=== PATIENT | female | born 1980 | race Caucasian/White ===

== ENCOUNTER 2017-03-01 09:12 | Emergency (ER) | payer OTHER ==
[2017-03-01 10:13] VITALS: BP 116/88
--- NOTE | 2017-03-01 10:14 | ED Physician Documentation ---
History of Present Illness - Stated complaint Stated Complaint: RED EYES, SINUS PAIN, DIFFICULTY BREATHING - Chief complaint Chief Complaint: Heent - Additonal information Additional information: hx from pt 36 f denies preg approx 7 days of fever myalgias congestion sore throat cough and diarrhea rest of family with similarr using OTC poly cold med s relief now sinus pressure and pain and R sided facial swelling Review of Systems Constitutional: reports: Fever, Chills, Myalgias Ears: reports: Ear pain Nose: reports: Congestion Throat: reports: Sore throat Respiratory: reports: Cough GI: reports: Diarrhea. denies: Vomiting : reports: Control (tubal and had vas and she is on her period now). denies: Now EGA PD PAST MEDICAL HISTORY - Past Medical History Past Medical History: No Respiratory: None, Asthma Endocrine/Autoimmune: HyPOthyroidism - Past Surgical History General: Cholecystectomy - Present Medications Home Medications: Ambulatory Orders Medication Instructions Recorded Confirmed Albuterol Sulf [Ventolin Hfa 2 puffs PO 03/01/17 Inhaler] Azithromycin [Zithromax] 250 mg PO DAILY #6 tablet 03/01/17 Fluticasone [Flonase] 1 sprays SONAM BID PRN #1 bottle 03/01/17 Levothyroxine Sodium [Synthroid] 175 mcg PO DAILY 03/01/17 03/01/17 Naproxen 03/01/17 Omeprazole 10 mg PO DAILY 03/01/17 03/01/17 - Allergies Allergies/Adverse Reactions: Allergies Allergy/AdvReac Type Severity Reaction Status Date / Time Penicillins Allergy family hx Verified 03/01/17 09:26 - Social History Does the pt smoke?: No Smoking Status: Never smoker - Immunizations Immunizations: TDAP current <10years PD ED PE NORMAL - Vitals Vital signs reviewed: Yes - General General: Alert and oriented X 3 - HEENT HEENT: PERRL, EOMI, Ears normal, Moist mucous membranes, Other (all sinus TTP, R frontal and maxiallr swollen and slightly erythematous, nasal dc). No: Pharynx benign (erythema no exudate) - Neck Neck: Supple, no meningeal sign - Cardiac Cardiac: RRR - Respiratory Respiratory: No respiratory distress, Clear bilaterally - Derm Derm: No rash - Extremities Extremities: No deformity - Neuro Neuro: Alert and oriented X 3 Results - Vitals Vitals: Vital Signs - 24 hr 12/30/17 09:20 Temperature 36.9 C Heart Rate 95 Respiratory 18 Rate Blood Pressure 129/84 H O2 Saturation 97 Oxygen O2 Source Room air PD MEDICAL DECISION MAKING - ED course ED course: mios sinus infections are viral and txed symptomatically but pt has failed symptomatic meds and ow with visible redness and swelling on R - feel this merits ab rx Departure - Departure Disposition: 01 Home, Self Care Clinical Impression: Sinusitis Qualifiers: Sinusitis location: maxillary Chronicity: acute Recurrence: not specified as recurrent Qualified Code(s): J01.00 - Acute maxillary sinusitis, unspecified Condition: Good Instructions: ED Sinusitis Abx Tx Prescriptions: Azithromycin [Zithromax] 250 mg PO DAILY #6 tablet Fluticasone [Flonase] 1 sprays SONAM BID PRN #1 bottle PRN Reason: allergies Comments: A sinus irrigation kit such as a Carolyn Pot (can buy at the grocery stores or pharmacy) to flush out your sinus cavities will help a lot
== END 2017-03-01 10:22 | disposition home or self-care (01) ==
LOC: ED 09:12
DX: J01.00 Acute maxillary sinusitis, unspecified (principal); E03.9 Hypothyroidism, unspecified
CPT/HCPCS: 99283

== ENCOUNTER 2017-03-27 13:55 | Emergency (ER) | payer OTHER ==
[2017-03-27 14:10] VITALS: BP 114/83
--- NOTE | 2017-03-27 14:26 | ED Physician Documentation ---
PD HPI SKIN - Stated complaint Stated Complaint: LEFT FINGER PX - Chief complaint Chief Complaint: Wound - History obtained from History obtained from: Patient - History of Present Illness Timing - onset: How many days ago (few) Timing - duration: Days Timing - details: Gradual onset, Still present Location: LLE (left index finger corner) Quality / character: Painful, Discolored (red) Associated symptoms: No: Fever Similar symptoms before: Has not had sx before Recently seen: Not recently seen Review of Systems Constitutional: denies: Fever, Chills PD PAST MEDICAL HISTORY - Past Medical History Past Medical History: No Respiratory: None, Asthma Endocrine/Autoimmune: HyPOthyroidism - Past Surgical History Past Surgical History: Yes General: Cholecystectomy - Present Medications Home Medications: Ambulatory Orders Medication Instructions Recorded Confirmed Albuterol Sulf [Ventolin Hfa 2 puffs PO DAILY 03/01/17 03/27/17 Inhaler] Levothyroxine Sodium [Synthroid] 175 mcg PO DAILY 03/01/17 03/27/17 Naproxen 1 tab PO BID 03/01/17 03/27/17 Omeprazole 10 mg PO DAILY 03/01/17 03/27/17 Mupirocin 1 applic TP TID #15 oint...g. 03/27/17 Sulfamethox/Trimeth 800/160 1 each PO BID #14 tablet 03/27/17 [Bactrim Ds 800/160] - Allergies Allergies/Adverse Reactions: Allergies Allergy/AdvReac Type Severity Reaction Status Date / Time Penicillins Allergy family hx Verified 03/27/17 14:10 - Social History Does the pt smoke?: No Smoking Status: Never smoker Does the pt drink ETOH?: Yes ETOH Use: Wine, Beer, Liquor Does the pt have substance abuse?: No - Immunizations Immunizations are current?: Yes Immunizations: TDAP current <10years - POLST Patient has POLST: No PD ED PE NORMAL - Vitals Vital signs reviewed: Yes - General General: Alert and oriented X 3, Well developed/nourished - Derm Derm: Normal color, Warm and dry - Extremities Extremities: Other (left index finger corner with nail into corner some and local swelling/white color, but redness extending on distal phalanx. ) - Neuro Neuro: No motor deficit, No sensory deficit Results - Vitals Vitals: Oxygen O2 Source Room air Procedures - General procedure General procedure: trimmed corner of nail from edge/ingrown part and some pus came out of corner. PD MEDICAL DECISION MAKING - ED course Complexity details: considered differential (paronychia with small local infection but also redness of skin c/w some cellulitic extension.), d/w patient Departure - Departure Disposition: 01 Home, Self Care Clinical Impression: Paronychia of finger Qualifiers: Laterality: left Qualified Code(s): L03.012 - Cellulitis of left finger Cellulitis of finger Qualifiers: Laterality: left Qualified Code(s): L03.012 - Cellulitis of left finger Condition: Stable Record reviewed to determine appropriate education?: Yes Instructions: ED Fingernail Infec Prescriptions: Mupirocin 1 applic TP TID #15 oint...g. Sulfamethox/Trimeth 800/160 [Bactrim Ds 800/160] 1 each PO BID #14 tablet Comments: Soak the finger 2-3 times a day in warm water. Apply mupirocin antibiotic ointment afterward. Bactrim oral antibiotic twice daily for the infection in the skin. Tylenol or ibuprofen if needed for pains. Recheck if not all better over the next several days. Discharge Date/Time: 03/27/17 14:57
[2017-03-27] MEDS ORDERED: SULFAMETH/TRIMETH DS 800/160 MG TABLET PO STA (14:48)
== END 2017-03-27 14:57 | disposition home or self-care (01) ==
LOC: ED 13:55
DX: L03.012 Cellulitis of left finger (principal); J45.909 Unspecified asthma, uncomplicated; E03.9 Hypothyroidism, unspecified
CPT/HCPCS: 99283; A9270

== ENCOUNTER 2018-05-20 10:28 | Emergency (ER) | payer OTHER ==
--- NOTE | 2018-05-20 11:24 | XRAY Report ---
Reason: dog bite Procedure Date: 05/20/2018 Accession Number: [id number] / [id number] Procedure: XR - Finger(s) LT CPT Code: FULL RESULT: EXAM: LEFT THUMB RADIOGRAPHY 3 VIEWS EXAM DATE: 05/20/2018. CLINICAL HISTORY: Dog bite. COMPARISON: None. TECHNIQUE: Frontal, oblique and lateral views. FINDINGS: Bones: Normal. No fracture or bone lesion. Joints: Normal. No subluxations. Soft Tissues: No radiopaque foreign body or soft tissue gas. IMPRESSION: Normal examination of the left thumb. RADIA
--- NOTE | 2018-05-20 11:28 | XRAY Report ---
Reason: dog bite Procedure Date: 05/20/2018 Accession Number: [id number] / [id number] Procedure: XR - Hand 3 View RT CPT Code: FULL RESULT: EXAM: RIGHT HAND RADIOGRAPHY 3 VIEWS EXAM DATE: 05/20/2018. CLINICAL HISTORY: Dog bite. COMPARISON: None. TECHNIQUE: PA, oblique and lateral views. FINDINGS: Bones: No acute fracture. Healed fracture of the distal phalanx of the fifth finger. Healed fracture of the distal radius, fixed with a ventral plate attached with multiple screws. Old nonunited fracture of the ulnar styloid. Joints: No dislocation. Soft Tissues: Mild dorsal swelling of the hand, and swelling of the second, third and fourth proximal phalanges. Radiodensities on the skin surface of multiple digits consistent with dirt or other radiodense material. IMPRESSION: No acute fracture or dislocation of the hand. Healed fracture of the distal phalanx of the fifth finger. Soft tissue swelling of the dorsum and of the fingers. Radiodensities on the skin surface of multiple fingers, probably dirt or other radiodense material. Old fractures of the distal radius and ulnar styloid. RADIA
[2018-05-20] MEDS ORDERED: AMOX/CLAV 875 MG/125 MG TABLET PO STA (12:28)
[2018-05-20] MEDS ORDERED: BACITRACIN OINT TOP STA (12:29)
[2018-05-20] MEDS ORDERED: TETANUS/DIPHTHERIA/PERTUSSIS 0.5 ML SYRINGE IM ONE (12:29)
--- NOTE | 2018-05-20 13:03 | ED Physician Documentation ---
PD HPI LOWER EXT INJURY - Stated complaint Stated Complaint: DOG BITE - Chief complaint Chief Complaint: Trauma Ext - History obtained from History obtained from: Patient - Additional information Additional information: 37-year-old female presents emergency department for evaluation after a dog bite which occurred today. The patient was bit on her right hand and has puncture wounds and her left thumb was also injured. No other area of injury. Symptoms are described as moderate. The dog is a friend's dog which is show no evidence of rapid behavior nor and the patient is unsure of the Dogs vaccination records. No other associated symptoms Review of Systems Constitutional: denies: Fever Eyes: denies: Discharge Ears: denies: Ear pain Nose: denies: Congestion Cardiac: denies: Chest pain / pressure Respiratory: denies: Cough GI: denies: Abdominal Pain Skin: reports: Laceration (s) Musculoskeletal: reports: Extremity pain Neurologic: denies: Generalized weakness PD PAST MEDICAL HISTORY - Past Medical History Past Medical History: Yes Respiratory: None, Asthma Endocrine/Autoimmune: HyPOthyroidism - Past Surgical History Past Surgical History: Yes General: Cholecystectomy - Present Medications Home Medications: Ambulatory Orders Medication Instructions Recorded Confirmed Albuterol Sulf [Ventolin Hfa 2 puffs PO DAILY 03/01/17 05/20/18 Inhaler] Levothyroxine Sodium [Synthroid] 175 mcg PO DAILY 03/01/17 05/20/18 Naproxen 1 tab PO BID 03/01/17 05/20/18 Omeprazole 10 mg PO DAILY 03/01/17 05/20/18 Amox/Clav 875/125 [Augmentin] 1 each PO Q12H #20 tablet 05/20/18 - Allergies Allergies/Adverse Reactions: Allergies Allergy/AdvReac Type Severity Reaction Status Date / Time Penicillins Allergy family hx Verified 05/20/18 10:49 - Social History Does the pt smoke?: No Smoking Status: Never smoker Does the pt drink ETOH?: Yes Does the pt have substance abuse?: No - Immunizations Immunizations are current?: Yes Immunizations: TDAP current <10years - POLST Patient has POLST: No PD ED PE NORMAL - General General: Alert and oriented X 3, No acute distress - HEENT HEENT: Atraumatic, PERRL, EOMI, Ears normal - Derm Derm: Other (Puncture wounds from the dog bite) - Extremities Extremities: No deformity - Neuro Neuro: Alert and oriented X 3, Normal speech - Psych Psych: Normal affect PD ED PE EXPANDED - Extremities KHOI UE/Hands Visual: 1 - laceration (Puncture wounds to the dorsum of the hand. There is some slight oozing. The patient has full active range of motion of the hand in extension and flexion. There is no bony area of tenderness. Normal cap refill and a normal radial pulse. There is no evidence of a tendon injury), tenderness 2 - tenderness (The patient has tenderness of the left thumb, there is no lacerations on the left hand) Results - Vitals Vitals: Vital Signs - 24 hr 05/20/18 10:45 Temperature 36.7 C Heart Rate 106 H Respiratory 16 Rate Blood Pressure 125/84 H O2 Saturation 98 Oxygen O2 Source Room air - Rads (name of study) XR Radiology: Final report received, See rad report (IMPRESSION: No acute fracture or dislocation of the hand. Healed fracture of the distal phalanx of the fifth finger. Soft tissue swelling of the dorsum and of the fingers. Radiodensities on the skin surface of multiple fingers, probably dirt or other radiodense material. Old fractures of the distal radius and ulnar styloid IMPRESSION: Normal examination of the left thumb. ) PD MEDICAL DECISION MAKING - ED course ED course: The patient will forego the rabies at this point, the dog will be observed and she will determine the vaccination status of the animal. I advised To get the immunoglobulin and first rabies vaccination. I advised returning to any point for reevaluation. I discussed warning signs for infection and various other issues and advised returning for any changes. The patient will otherwise fo llow-up with primary care Departure - Departure Disposition: 01 Home, Self Care Clinical Impression: Dog bite of hand Qualifiers: Encounter type: initial encounter Laterality: unspecified laterality Qualified Code(s): S61.459A - Open bite of unspecified hand, initial encounter; W54.0XXA - Bitten by dog, initial encounter Condition: Good Instructions: ED Bite Dog Prescriptions: Amox/Clav 875/125 [Augmentin] 1 each PO Q12H #20 tablet Comments: Please ask your friend to find out if the dog was vaccinated with rabies. If the dog shows any signs of rapid behavior or you change your mind please return back to the emergency department any point for the rabies immunoglobulin and vaccine Please return back to the emergency department any point for reevaluation for worsening symptoms or any concerns Please otherwise follow-up with primary care for ongoing wound management
[2018-05-20 13:11] VITALS: BP 118/75
== END 2018-05-20 13:10 | disposition home or self-care (01) ==
LOC: ED 10:28
DX: S61.431A Puncture wound without foreign body of right hand, initial encounter (principal); W54.0XXA Bitten by dog, initial encounter; M79.645 Pain in left finger(s)
CPT/HCPCS: 73130; 73140; 90471; 90715; 99283; A9270

== ENCOUNTER 2019-03-31 17:22 | Emergency (ER) | payer OTHER ==
[2019-03-31 17:39] VITALS: BP 132/102
[2019-03-31] MEDS ORDERED: CETIRIZINE 10 MG TABLET PO STA (18:16)
[2019-03-31] MEDS ORDERED: PSEUDOEPHEDRINE 30 MG TABLET PO STA (18:16)
--- NOTE | 2019-03-31 18:22 | ED Physician Documentation ---
PD HPI URI - Stated complaint Stated Complaint: FEVER/CONGESTION - Chief complaint Chief Complaint: Fever - History obtained from History obtained from: Patient - History of Present Illness Timing - onset: How many days ago (4) Timing duration: Days (4) Timing details: Gradual onset Pain level max: 0 Pain level now: 0 Associated symptoms: Fever (99), Nasal congestion, Rhinorrhea, Dry cough. 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 denies: Chills Nose: reports: Rhinorrhea / runny nose, Congestion Throat: denies: Sore throat Respiratory: reports: Cough GI: denies: Abdominal Pain, Nausea, Vomiting, Diarrhea : denies: Dysuria, Now EGA Skin: denies: Rash Musculoskeletal: denies: Neck pain, Back pain Neurologic: denies: Focal weakness, Numbness, Headache PD PAST MEDICAL HISTORY - Past Medical History Past Medical History: Yes Respiratory: None, Asthma Endocrine/Autoimmune: HyPOthyroidism - Past Surgical History Past Surgical History: Yes General: Cholecystectomy - Present Medications Home Medications: Ambulatory Orders Medication Instructions Recorded Confirmed Albuterol Sulf [Ventolin Hfa 2 puffs PO DAILY 03/01/17 05/20/18 Inhaler] Levothyroxine Sodium [Synthroid] 175 mcg PO DAILY 03/01/17 05/20/18 Naproxen 1 tab PO BID 03/01/17 05/20/18 Omeprazole 10 mg PO DAILY 03/01/17 05/20/18 Amox/Clav 875/125 [Augmentin] 1 each PO Q12H #20 tablet 05/20/18 Loratadine/Pseudoephedrine 1 tab PO DAILY PRN #14 tab.er.24h 03/31/19 [Allerclear D-24Hr ER Tablet] - Allergies Allergies/Adverse Reactions: Allergies Allergy/AdvReac Type Severity Reaction Status Date / Time Penicillins Allergy family hx Verified 03/31/19 17:36 - Social History Does the pt smoke?: No Smoking Status: Never smoker Does the pt drink ETOH?: Yes Does the pt have substance abuse?: No - Immunizations Immunizations are current?: Yes Immunizations: TDAP current <10years - POLST Patient has POLST: No PD ED PE NORMAL - Vitals Vital signs reviewed: Yes - General General: Alert and oriented X 3, No acute distress - HEENT HEENT: Ears normal, Moist mucous membranes, Pharynx benign - Neck Neck: Supple, no meningeal sign, No adenopathy - Cardiac Cardiac: RRR - Respiratory Respiratory: No respiratory distress, Clear bilaterally - Abdomen Abdomen: Soft, Non tender, Non distended - Derm Derm: Warm and dry - Extremities Extremities: No edema - Neuro Neuro: Alert and oriented X 3 - Psych Psych: Normal mood, Normal affect Results - Vitals Vitals: Vital Signs - 24 hr 03/31/19 17:36 Temperature 37.2 C Heart Rate 105 H Respiratory 16 Rate Blood Pressure 132/102 H O2 Saturation 99 Oxygen O2 Source Room air - Labs Labs: Laboratory Tests 03/31/19 18:00 Influenza A (Rapid) Negative Influenza B (Rapid) Negative PD MEDICAL DECISION MAKING - ED course Complexity details: reviewed results, considered differential, d/w patient ED course: Patient with what appears to be a viral syndrome. She is well-appearing, nontoxic. Negative influenza screen. No evidence of pneumonia. No evidence of strep pharyngitis. We will continue supportive care and have her follow-up with her doctor. Patient counseled regarding signs and symptoms for which I believe and urgent re-evaluation would be necessary. Patient with good understanding of and agreement to plan and is comfortable going home at this time This document was made in part using voice recognition software. While efforts are made to proofread this document, sound alike and grammatical errors may occur. Departure - Departure Disposition: 01 Home, Self Care Clinical Impression: Viral syndrome Condition: Good Instructions: ED Viral Syndrome Follow-Up: your,doctor in 1 week [Other] Prescriptions: Loratadine/Pseudoephedrine [Allerclear D-24Hr ER Tablet] 1 tab PO DAILY PRN #14 tab.er.24h PRN Reason: nasal congestion Comments: Return if you worsen. Drink plenty of fluids and rest. Discharge Date/Time: 03/31/19 18:31
== END 2019-03-31 18:31 | disposition home or self-care (01) ==
LOC: ED 17:22
DX: B34.9 Viral infection, unspecified (principal); J45.909 Unspecified asthma, uncomplicated
CPT/HCPCS: 87275; 87276; 99283; 99284; A9270

== ENCOUNTER 2019-07-24 16:17 | Emergency (ER) | payer OTHER ==
[2019-07-24 16:29] VITALS: BP 129/85
[2019-07-24] MEDS ORDERED: MUPIROCIN 2% OINT 1 GM TOP STA (16:30)
--- NOTE | 2019-07-24 16:31 | ED Physician Documentation ---
PD HPI LOWER EXT INJURY - Stated complaint Stated Complaint: LT FOOT INJ - Chief complaint Chief Complaint: Ext Problem - History obtained from History obtained from: Patient (She thinks about 4 days ago maybe she dropped something on her foot. She has a sore on the top of the left foot that is tender and hurts minimally at rest and a little more with walking. No fevers or chills.) Review of Systems Constitutional: reports: Reviewed and negative Cardiac: reports: Reviewed and negative Respiratory: reports: Reviewed and negative PD PAST MEDICAL HISTORY - Past Medical History Respiratory: None, Asthma Endocrine/Autoimmune: HyPOthyroidism - Past Surgical History Past Surgical History: Yes General: Cholecystectomy - Present Medications Home Medications: Ambulatory Orders Medication Instructions Recorded Confirmed Albuterol Sulf [Ventolin Hfa 2 puffs PO DAILY 03/01/17 05/20/18 Inhaler] Levothyroxine Sodium [Synthroid] 175 mcg PO DAILY 03/01/17 05/20/18 Naproxen 1 tab PO BID 03/01/17 05/20/18 Omeprazole 10 mg PO DAILY 03/01/17 05/20/18 Amox/Clav 875/125 [Augmentin] 1 each PO Q12H #20 tablet 05/20/18 Loratadine/Pseudoephedrine 1 tab PO DAILY PRN #14 tab.er.24h 03/31/19 [Allerclear D-24Hr ER Tablet] Mupirocin 1 gm TP TID #2 [email or web address] 07/24/19 - Allergies Allergies/Adverse Reactions: Allergies Allergy/AdvReac Type Severity Reaction Status Date / Time Penicillins Allergy family hx Verified 07/24/19 16:30 - Social History Does the pt smoke?: No Smoking Status: Never smoker Does the pt drink ETOH?: Yes Does the pt have substance abuse?: No - Immunizations Immunizations are current?: Yes Immunizations: TDAP current <10years - POLST Patient has POLST: No PD ED PE NORMAL - Vitals Vital signs reviewed: Yes - General General: Alert and oriented X 3, No acute distress - Extremities Extremities: Other (There is an abrasion on the top of the midfoot on the left with some underlying tenderness. No obvious infection but she worries about that.) - Neuro Neuro: Alert and oriented X 3, Normal speech Results - Vitals Vitals: Vital Signs - 24 hr 07/24/19 16:27 Temperature 36.7 C Heart Rate 78 Respiratory 16 Rate Blood Pressure 129/85 H O2 Saturation 100 Oxygen O2 Source Room air - Rads (name of study) 3 views of the left foot Radiology: EMP read contemporaneously (Contusion without fracture) PD MEDICAL DECISION MAKING - ED course ED course: 38-year-old woman with a several day old contusion of the foot, there is an abrasion there as well that may be very mildly effective which is treated with mupirocin. Certainly not significant enough to merit oral antibiotics. Departure - Departure Disposition: 01 Home, Self Care Clinical Impression: Abrasion, left foot, initial encounter Contusion of left foot Qualifiers: Encounter type: initial encounter Qualified Code(s): S90.32XA - Contusion of left foot, initial encounter Condition: Good Record reviewed to determine appropriate education?: Yes Instructions: ED Contusion Foot Prescriptions: Mupirocin 1 gm TP TID #2 [email or web address] Comments: Ibuprofen as needed for pain, if there is increased redness please return for reevaluation.
--- NOTE | 2019-07-24 16:54 | XRAY Report ---
Reason: foot inj Procedure Date: 07/24/2019 Accession Number: [id number] / [id number] Procedure: XR - Foot 3 View LT CPT Code: Final Report FULL RESULT: EXAM: LEFT FOOT RADIOGRAPHY EXAM DATE: 07/24/2019 04:45 PM. CLINICAL HISTORY: Left foot injury COMPARISON: None. TECHNIQUE: 3 views. FINDINGS: Bones: No fracture. Minimal Achilles enthesopathy. Joints: Nonweightbearing exam. No tibiotalar fusion. Soft Tissues: Mild soft tissue thickening and increased attenuation at the dorsum of the foot. No radiopaque retained foreign body. IMPRESSION: Mild soft tissue thickening and increased attenuation of the dorsum of the left foot. Correlate for hematoma. No fracture. RADIA
== END 2019-07-24 17:12 | disposition home or self-care (01) ==
LOC: ED 16:17
DX: S90.812A Abrasion, left foot, initial encounter (principal); S90.32XA Contusion of left foot, initial encounter; W20.8XXA Other cause of strike by thrown, projected or falling object, initial encounter
CPT/HCPCS: 73630; 99283; A9270

== ENCOUNTER 2021-09-07 14:07 | Emergency (ER) | payer OTHER ==
[2021-09-07] MEDS ORDERED: IPRATROPIUM/ALBUTEROL 3 ML NEB INH STA (16:28)
--- NOTE | 2021-09-07 16:29 | ED Physician Documentation ---
PD HPI DYSPNEA - Stated complaint Stated Complaint: SOA - Chief complaint Chief Complaint: Resp - History obtained from History obtained from: Patient - Additional information Additional information: Generally healthy 41-year-old woman with history of asthma. Never hospitalized for same. It is mild intermittent and uses an albuterol inhaler as needed but not daily. Its been particularly bad for the last 2 weeks though. She did have a fever on the day of onset but not since. Now she is just wheezing with dry cough and shortness of breath. Review of Systems Constitutional: denies: Fever, Chills Nose: denies: Rhinorrhea / runny nose Cardiac: denies: Chest pain / pressure Respiratory: reports: Dyspnea, Cough PD PAST MEDICAL HISTORY - Past Medical History Respiratory: None, Asthma Endocrine/Autoimmune: HyPOthyroidism - Past Surgical History Past Surgical History: Yes General: Cholecystectomy - Present Medications Home Medications: Ambulatory Orders Medication Instructions Recorded Confirmed Albuterol Sulf [Ventolin Hfa 2 puffs PO DAILY 03/01/17 05/20/18 Inhaler] Levothyroxine Sodium [Synthroid] 175 mcg PO DAILY 03/01/17 05/20/18 Naproxen 1 tab PO BID 03/01/17 05/20/18 Omeprazole 10 mg PO DAILY 03/01/17 05/20/18 Amox/Clav 875/125 [Augmentin] 1 each PO Q12H #20 tablet 05/20/18 Loratadine/Pseudoephedrine 1 tab PO DAILY PRN #14 tab.er.24h 03/31/19 [Allerclear D-24Hr ER Tablet] Mupirocin 1 gm TP TID #2 oin.pf.holley 07/24/19 Montelukast [Singulair] 10 mg PO QPM #30 tablet 09/07/21 predniSONE [Deltasone] 20 mg PO [id number] #21 tab 09/07/21 - Allergies Allergies/Adverse Reactions: Allergies Allergy/AdvReac Type Severity Reaction Status Date / Time Penicillins Allergy family hx Verified 07/24/19 16:30 shellfish derived Allergy Anaphylaxis Verified 09/07/21 14:11 - Social History Does the pt smoke?: No Smoking Status: Never smoker Does the pt drink ETOH?: Yes Does the pt have substance abuse?: No - Immunizations Immunizations are current?: Yes Immunizations: TDAP current <10years - POLST Patient has POLST: No PD ED PE NORMAL - Vitals Vital signs reviewed: Yes - General General: Alert and oriented X 3, Other (Frequent dry cough, audible wheezing at the bedside) - HEENT HEENT: PERRL, EOMI - Neck Neck: Supple, no meningeal sign, No bony TTP - Cardiac Cardiac: RRR, No murmur - Respiratory Respiratory: No respiratory distress, Other (Inspiratory and expiratory wheezing and mildly diminished but generally good air motion.) - Abdomen Abdomen: Normal bowel sounds, Soft, Non tender - Back Back: No CVA TTP, No spinal TTP - Derm Derm: Normal color, Warm and dry - Extremities Extremities: No edema, No calf tenderness / cord - Neuro Neuro: Alert and oriented X 3, Normal speech Results - Vitals Vitals: Vital Signs - 24 hr 09/07/21 09/07/21 09/07/21 14:11 16:42 16:44 Temperature 36.5 C Heart Rate 110 H 96 97 Respiratory 18 17 15 Rate Blood Pressure 136/64 H 110/79 O2 Saturation 99 100 Oxygen O2 Source Room air PD MEDICAL DECISION MAKING - ED course ED course: 41-year-old woman presents with active asthma exacerbation with normal vital signs. Not an extremis but definitely wheezing. After the administration of a DuoNeb and oral prednisone here she was feeling much better and her lungs were clear. She did not need a refill on her albuterol. Departure - Departure Disposition: 01 Home, Self Care Clinical Impression: Asthma Qualifiers: Asthma severity: mild Asthma persistence: intermittent Asthma complication type: with acute exacerbation Qualified Code(s): J45.21 - Mild intermittent asthma with (acute) exacerbation Condition: Good Record reviewed to determine appropriate education?: Yes Instructions: Asthma Dc Prescriptions: predniSONE [Deltasone] 20 mg PO [id number] #21 tab Montelukast [Singulair] 10 mg PO QPM #30 tablet Comments: Call your doctor to arrange a follow-up appointment, make the next available appointment. In the interim, return anytime if worse or if new symptoms develop.
[2021-09-07] MEDS ORDERED: predniSONE 20 MG TABLET PO STA (16:46)
[2021-09-07 17:14] VITALS: BP 112/72
== END 2021-09-07 17:14 | disposition home or self-care (01) ==
LOC: ED 14:07
DX: J45.21 Mild intermittent asthma with (acute) exacerbation (principal)
CPT/HCPCS: 94640; 94664; 99283; 99284; J7512

== ENCOUNTER 2022-05-04 10:20 | Emergency (ER) | payer OTHER ==
--- NOTE | 2022-05-04 14:14 | ED Physician Documentation ---
History of Present Illness - Stated complaint Stated Complaint: ABSCESS - Chief complaint Chief Complaint: Wound - Additonal information Additional information: History provided by patient. Reliable historian. 41-year-old presents to the emergency department with several days left lower genital area swelling that she believes to be a Bartholin abscess. States this has been a recurrent problem since high school. However she has never had it formally evaluated managed or drained. No fevers. Sexually active monogamous with 1 partner. No concerns for STI. Review of Systems Constitutional: reports: Reviewed and negative : reports: Other (Bartholin abscess) Skin: reports: Lesions PD PAST MEDICAL HISTORY - Past Medical History Respiratory: None, Asthma Endocrine/Autoimmune: HyPOthyroidism - Past Surgical History Past Surgical History: Yes General: Cholecystectomy - Present Medications Home Medications: Ambulatory Orders Medication Instructions Recorded Confirmed Albuterol Sulf [Ventolin Hfa 2 puffs PO DAILY 03/01/17 05/04/22 Inhaler] Levothyroxine Sodium [Synthroid] 175 mcg PO DAILY 03/01/17 05/04/22 Montelukast [Singulair] 10 mg PO QPM #30 tablet 09/07/21 05/04/22 Fluticasone Propion/Salmeterol 1 each IH DAILY 05/04/22 05/04/22 [Wixela 250-50 Inhub] Phentermine/Topiramate [Qsymia 1 each PO DAILY 05/04/22 05/04/22 11.25 mg-69 mg Capsule] Sulfamethox/Trimeth 800/160 1 each PO BID #14 tablet 05/04/22 [Bactrim Ds 800/160] - Allergies Allergies/Adverse Reactions: Allergies Allergy/AdvReac Type Severity Reaction Status Date / Time Penicillins Allergy family hx Verified 05/04/22 10:46 shellfish derived Allergy Anaphylaxis Verified 05/04/22 10:46 - Social History Does the pt smoke?: No Smoking Status: Never smoker Does the pt drink ETOH?: Yes Does the pt have substance abuse?: No - Immunizations Immunizations are current?: Yes Immunizations: TDAP current <10years - POLST Patient has POLST: No PD ED PE EXPANDED - General General: Alert, No acute distress - Female Female : Hydrologist present, Other (Left lower perigenital region with a 3 x 2 cm fluctuant abscess. Well below the level of the labia where you would expect Bartholin gland.) Results - Vitals Vitals: Vital Signs - 24 hr 05/04/22 10:42 Temperature 36.8 C Heart Rate 102 H Respiratory 18 Rate Blood Pressure 127/84 H O2 Saturation 100 Oxygen O2 Source Room air Procedures - Abscess I&D (location) left lower ravi-genital Preparation: Betadine, Lidocaine 1% Incision: Incised with scalpel, Purulent drainage, Loculations broken, Irrigated, Packed Other: Pt tolerated well, Dressing applied, Antibiotic prescribed PD Medical Decision Making - ED course Complexity details: d/w patient ED course: 41-year-old female presents emergency department for evaluation of a left lower perigenital abscess that is become a recurrent problem since high school. Though she has never had a fully drained or medically evaluated. On exam this is well below the region where 1 would expect a Bartholin cyst despite this however it should be drained and was at the bedside multiple loculations as well as purulent drainage seen. It was well irrigated and packed with small amount of gauze. Patient will be placed on Bactrim. Advised close follow-up with PCP. Given the recurrence in this region may benefit from gynecology referral though I am not certain this is a Bartholin abscess that recurs. Departure - Departure Disposition: 01 Home, Self Care Clinical Impression: Abscess of female genitalia Condition: Stable Record reviewed to determine appropriate education?: Yes Prescriptions: Sulfamethox/Trimeth 800/160 [Bactrim Ds 800/160] 1 each PO BID #14 tablet Comments: Haydee you do have an abscess in your left lower genital region. This is below the level where we would typically see a Bartholin gland abscess. However because it seems to recur still be. In any event we did drain this abscess today. It measured approximately 3 x 2 cm. It was irrigated and a small amount of shoestring gauze was placed in this wound. I would like you to remove this gauze in 36 to 48 hours time. It is okay to shower normally. I also recommend a warm sitz bath once a day. A prescription for Bactrim, an antibiotic, has been sent to the [facility] in [place]. Once the packing is out of the wound I recommend that you rinse this area with warm soapy water when you are in the shower each day. Over time and particular the next few weeks this should heal well. If at any point you have concerns of worsening infection, have increased pain, redness, swelling do not hesitate to return to the ER. I do recommend close follow-up with your primary care provider. You may benefit from referral to a field rep for evaluation of this recurrent abscess that may benefit from surgical evaluation and marsupialization.
[2022-05-04 14:29] VITALS: BP 106/77
== END 2022-05-04 14:34 | disposition home or self-care (01) ==
LOC: ED 10:20
DX: N76.4 Abscess of vulva (principal)
CPT/HCPCS: 56405

== ENCOUNTER 2022-08-29 13:06 | Emergency (ER) | payer OTHER ==
--- NOTE | 2022-08-29 13:25 | ED Physician Documentation ---
PD HPI CHEST PAIN - Stated complaint Stated Complaint: HIGH HR - Chief complaint Chief Complaint: Cardiac - History obtained from History obtained from: Patient - History of Present Illness Timing - onset: How many hours ago (4), Today Timing - onset during: Light activity (she was at [employer] and felt onset of fast heart rate, lightheaded, general weakness and some dyspnea.) Timing - details: Abrupt onset, Still present (had slowly improved but prior episodes tend to improve more readily than today.) Quality: Dull. No: Pressure, Tightness Location: Substernal, Left chest Associated symptoms: Feeling faint / dizzy, Palpitations. No: Shortness of air, Nausea Similar symptoms before: No diagnosis (has been evaluated by Neurologist for possible POTS. Has had Holter monitor couple of times. Also recently seen Endocrinology for low cortisol and felt to be hypoadrenal. Had no notable findings on brain MRI, per patient. Started on Hydrocortisone 20 mg AM, 5 mg PM just this past week.) Review of Systems Constitutional: denies: Fever, Chills Cardiac: denies: Chest pain / pressure, Palpitations, Pedal edema Respiratory: denies: Dyspnea, Cough GI: denies: Abdominal Pain, Vomiting, Diarrhea, Bloody / black stool Neurologic: denies: Generalized weakness, Headache PD PAST MEDICAL HISTORY - Past Medical History Respiratory: None, Asthma Endocrine/Autoimmune: HyPOthyroidism - Past Surgical History Past Surgical History: Yes General: Cholecystectomy - Present Medications Home Medications: Ambulatory Orders Medication Instructions Recorded Confirmed Albuterol Sulf [Ventolin Hfa 2 puffs PO DAILY 03/01/17 08/29/22 Inhaler] Levothyroxine Sodium [Synthroid] 175 mcg PO DAILY 03/01/17 08/29/22 Montelukast [Singulair] 10 mg PO QPM #30 tablet 09/07/21 08/29/22 Fluticasone Propion/Salmeterol 1 each IH DAILY 05/04/22 08/29/22 [Wixela 250-50 Inhub] Phentermine/Topiramate [Qsymia 1 each PO DAILY 05/04/22 08/29/22 11.25 mg-69 mg Capsule] - Allergies Allergies/Adverse Reactions: Allergies Allergy/AdvReac Type Severity Reaction Status Date / Time Penicillins Allergy family hx Verified 08/29/22 13:22 shellfish derived Allergy Anaphylaxis Verified 08/29/22 13:22 - Social History Does the pt smoke?: No Smoking Status: Never smoker Does the pt drink ETOH?: Yes Does the pt have substance abuse?: No - Immunizations Immunizations are current?: Yes Immunizations: TDAP current <10years - POLST Patient has POLST: No PD ED PE NORMAL - Vitals Vital signs reviewed: Yes - General General: Alert and oriented X 3, No acute distress, Well developed/nourished - Neck Neck: Supple, no meningeal sign, No adenopathy - Cardiac Cardiac: No murmur. No: RRR (tachycardic on arrival with sinus tach 130s, that slows to 110s after resting on cart few minutes. ) - Abdomen Abdomen: Soft - Derm Derm: Normal color, Warm and dry - Extremities Extremities: No edema, No calf tenderness / cord - Neuro Neuro: Alert and oriented X 3, No motor deficit, Normal speech Results - Vitals Vitals: Oxygen O2 Source Room air - EKG (time done) 13:13 EKG releavant findings:: EKG personally interpreted by author of this note. Relevant findings are: Rate: Rate (enter#) (116) Rhythm: Sinus tachycardia [place]: Normal Intervals: Normal GA QRS: Normal Ischemia: Normal ST segments. No: ST elevation c/w ischemia, ST depression - Labs Labs: Laboratory Tests 08/29/22 08/29/22 14:06 14:06 WBC 8.0 RBC 5.05 Hgb 13.9 Hct 43.7 MCV 86.5 MCH 27.5 MCHC 31.8 L RDW 12.8 Plt Count 228 MPV 10.1 Neut # (Auto) 6.0 Lymph # (Auto) 1.2 L [place] # (Auto) 0.6 Eos # (Auto) 0.0 Baso # (Auto) 0.1 Absolute Nucleated RBC 0.00 Nucleated RBC % 0.0 Sodium 138 Potassium 3.7 Chloride 107 Carbon Dioxide 25 Anion Gap 6.0 BUN 11 Creatinine 0.7 Estimated GFR (MDRD) 93 Glucose 102 H Calcium 8.8 Magnesium 2.1 Total Bilirubin 0.4 AST 22 ALT 34 Alkaline Phosphatase 53 Total Protein 6.9 Albumin 3.9 Globulin 3.0 Albumin/Globulin Ratio 1.3 Lipase 52 H PD Medical Decision Making - ED course Complexity details: reviewed old records (she showed me her vital signs log for the past 2 weeks and she has had BPs in AM regularly in 80s to low 90s systolic, with mild tachycardia. She states these are lower than usual for her. ), considered differential (has had lower BP this past week or more. Recently on Hydrocortisone due to hypoadrenalism. Is at lower starting dose. Lightheaded and tachycardic earlier today. Has ?POTS and tachycardic often anyway, but was more than usual. Checking CBC/lytes/ ECG. Can give some IV fluids. Consider needing boost d), d/w patient Departure - Departure Disposition: 01 Home, Self Care Clinical Impression: Postural orthostatic tachycardia syndrome, Hypoadrenalism, Tachycardia Condition: Stable Record reviewed to determine appropriate education?: Yes Comments: Continue usual medications. Stay well-hydrated. Contact your electrical prospecting operator's office later today or tomorrow to discuss the symptoms and your blood pressure and heart rate trend this past week. See if they want to increase your hydrocortisone dose or not. Other consideration on your blood pressure could be midodrine which tries to augment sodium retention. I would defer to your electrical prospecting operator regarding that. At this point given your typical blood pressures being somewhat low, I would not suggest any beta-blockers to help with the tachycardia. That could be consideration in the future if your blood pressures more normal on trend. Discharge Date/Time: 08/29/22 15:08
[2022-08-29] MEDS ORDERED: SODIUM CHLORIDE 0.9% 1,000 ML IV STA (13:56)
[2022-08-29 14:12] LABS: BASOPHILS # (AUTO) 0.1 10^3/uL (0.0-0.1); BASOPHILS % (AUTO) 0.6 %; EOSINOPHILS % (AUTO) 0.3 %; HCT - HEMATOCRIT 43.7 % (37.0-47.0); HGB - HEMOGLOBIN 13.9 g/dL (12.0-16.0); LYMPHOCYTES # (AUTO) 1.2 10^3/uL (1.5-3.5); LYMPHOCYTES % (AUTO) 15.6 %; MEAN CORPUSCULAR HEMOGLOBIN 27.5 pg (27.0-31.0); MEAN CORPUSCULAR HGB CONC 31.8 g/dL (32.0-36.0); MEAN CORPUSCULAR VOLUME 86.5 fL (81.0-99.0); MEAN PLATELET VOLUME 10.1 fL (7.9-10.8); MONOCYTES # (AUTO) 0.6 10^3/uL (0.0-1.0); MONOCYTES % (AUTO) 7.4 %; NEUTROPHILS % (AUTO) 75.5 %; PLT - PLATELET COUNT 228 10^3/uL (130-450); RED BLOOD COUNT 5.05 10^6/uL (4.20-5.40); RED CELL DISTRIBUTION WIDTH 12.8 % (12.0-15.0)
[2022-08-29] MEDS ORDERED: DEXAMETHASONE 10 MG/ML VIAL IVP STA (14:13)
[2022-08-29 14:28] LABS: ALBUMIN 3.9 g/dL (3.2-5.5); ALBUMIN/GLOBULIN RATIO 1.3 (1.0-2.2); BILIRUBIN,TOTAL 0.4 mg/dL (0.2-1.0); CALCIUM 8.8 mg/dL (8.5-10.3); CREATININE 0.7 mg/dL (0.4-1.0); MAGNESIUM 2.1 mg/dL (1.7-2.8); POTASSIUM 3.7 mmol/L (3.5-5.0); TOTAL PROTEIN 6.9 g/dL (6.7-8.2)
[2022-08-29 15:06] VITALS: BP 106/70
== END 2022-08-29 15:08 | disposition home or self-care (01) ==
LOC: ED 13:06
DX: G90.A Postural orthostatic tachycardia syndrome [POTS] (principal); E27.40 Unspecified adrenocortical insufficiency
CPT/HCPCS: 36415; 80053; 83690; 83735; 85025; 93005; 96374; 99284

== ENCOUNTER 2022-10-23 08:37 | Outpatient (CLI) | payer OTHER | END 2022-10-23 23:59 | disposition critical access hospital (66) | LOC: EMS 08:37 | DX: R50.9 Fever, unspecified (principal); R05.9 Cough, unspecified; R53.1 Weakness | CPT/HCPCS: A0425; A0429 ==

== ENCOUNTER 2022-10-23 08:57 | Emergency (ER) | payer OTHER ==
--- NOTE | 2022-10-23 09:16 | ED Physician Documentation ---
PD HPI URI - Stated complaint Stated Complaint: COVID+/BODY ACHES/COUGH - History obtained from History obtained from: Patient - History of Present Illness Timing - onset: How many days ago (4) Timing duration: Days (4) Timing details: Gradual onset, Still present Associated symptoms: Fever, Ear pain, Nasal congestion, Rhinorrhea, Sore throat, Productive cough Contributing factors: Sick contact (On a cruise) Improves by: Rest Worsened by: Activity Similar symptoms before: Diagnosis (URI) Recently seen: Not recently seen - Additional information Additional information: 42-year-old Haydee Cr has a history of POTS and adrenal insufficiency. She is on 20 mg of hydrocortisone daily and 5 at night. She was on a cruise and finished the cruise on Friday or 4 days ago and began to develop symptoms of fatigue she subsequently developed a cough and fever she has tested positive for COVID. She has had 4 COVID vaccinations previously. She has not had COVID previously. She is complaining of some production of yellow phlegm sore throat and ringing in her ears. Review of Systems Constitutional: reports: Fever, Chills, Myalgias, Fatigue, Sweats Eyes: denies: Decreased vision Ears: reports: Tinnitus/ringing Nose: reports: Rhinorrhea / runny nose, Congestion Throat: reports: Sore throat Cardiac: reports: Chest pain / pressure Respiratory: reports: Dyspnea, Cough GI: reports: Nausea, Diarrhea (loose stool only). denies: Abdominal Pain, Vomiting : denies: Dysuria, Frequency Skin: denies: Rash Musculoskeletal: denies: Neck pain, Back pain, Extremity pain Neurologic: reports: Generalized weakness. denies: Focal weakness, Numbness PD PAST MEDICAL HISTORY - Past Medical History Respiratory: None, Asthma Endocrine/Autoimmune: HyPOthyroidism - Past Surgical History Past Surgical History: Yes General: Cholecystectomy - Present Medications Home Medications: Ambulatory Orders Medication Instructions Recorded Confirmed Albuterol Sulf [Ventolin Hfa 2 puffs PO DAILY 03/01/17 08/29/22 Inhaler] Levothyroxine Sodium [Synthroid] 175 mcg PO DAILY 03/01/17 08/29/22 Montelukast [Singulair] 10 mg PO QPM #30 tablet 09/07/21 08/29/22 Fluticasone Propion/Salmeterol 1 each IH DAILY 05/04/22 08/29/22 [Wixela 250-50 Inhub] Phentermine/Topiramate [Qsymia 1 each PO DAILY 05/04/22 08/29/22 11.25 mg-69 mg Capsule] Azithromycin [Zithromax] 250 mg PO DAILY #6 tablet 10/23/22 Nirmatrelvir/Ritonavir [Paxlovid] 1 kit PO BID #1 kit 10/23/22 - Allergies Allergies/Adverse Reactions: Allergies Allergy/AdvReac Type Severity Reaction Status Date / Time Penicillins Allergy family hx Verified 08/29/22 13:22 shellfish derived Allergy Anaphylaxis Verified 08/29/22 13:22 - Social History Does the pt smoke?: No Smoking Status: Never smoker Does the pt drink ETOH?: Yes Does the pt have substance abuse?: No - Immunizations Immunizations are current?: Yes Immunizations: TDAP current <10years - POLST Patient has POLST: No PD ED PE NORMAL - Vitals Vital signs reviewed: Yes (Tachycardic and hypertensive) - General General: Alert and oriented X 3, Well developed/nourished, Other (42-year-old female wearing a mask laying supine with an audible cough) - HEENT HEENT: Atraumatic, PERRL, EOMI, Pharynx benign, Other (Right TM is mildly erythematous with distortion of landmarks the left TM is markedly erythematous with distortion of landmarks.) - Neck Neck: Supple, no meningeal sign, No bony TTP - Cardiac Cardiac: No murmur, Other (Tachycardic to 110) - Respiratory Respiratory: No respiratory distress, Other (Symmetric rhonchi) - Abdomen Abdomen: Soft, Non tender - Back Back: No CVA TTP, No spinal TTP - Derm Derm: Normal color, Warm and dry, No rash - Extremities Extremities: No deformity, No edema - Neuro Neuro: Alert and oriented X 3, green chain operator 2-12 intact, No motor deficit, No sensory deficit, Normal speech Eye Opening: Spontaneous Motor: Obeys Commands Verbal: Oriented GCS Score: 15 - Psych Psych: Normal mood, Normal affect Results - Vitals Vitals: Vital Signs - 24 hr 10/23/22 09:15 Temperature 36.6 C Heart Rate 114 H Respiratory 24 Rate Blood Pressure 132/79 H O2 Saturation 97 Oxygen O2 Source Room air - Labs Labs: Laboratory Tests 10/23/22 10/23/22 09:53 09:53 WBC 7.3 RBC 4.65 Hgb 12.8 Hct 40.6 MCV 87.3 MCH 27.5 MCHC 31.5 L RDW 13.6 Plt Count 154 MPV 10.1 Neut # (Auto) 5.9 Lymph # (Auto) 0.4 L [place] # (Auto) 0.8 Eos # (Auto) 0.1 Baso # (Auto) 0.0 Absolute Nucleated RBC 0.00 Nucleated RBC % 0.0 Sodium 135 Potassium 3.8 Chloride 103 Carbon Dioxide 29 Anion Gap 3.0 L BUN 10 Creatinine 0.6 Estimated GFR (MDRD) 111 Glucose 86 Calcium 9.1 Total Bilirubin 0.6 AST 39 ALT 47 Alkaline Phosphatase 53 Total Protein 6.3 L Albumin 3.9 Globulin 2.4 Albumin/Globulin Ratio 1.6 Lipase 29 - Rads (name of study) chest Relevant Findings:: Prelim report reviewed (Impression: Mild cardiomegaly.), EMP independent interpretation of test PD Medical Decision Making - ED course Complexity details: considered differential, d/w patient ED course: 42-year-old female testing positive for COVID has a history of POTS and she is on adrenal replacement with hydrocortisone. She is taking her usual dose of hydrocortisone this morning and we are administering additional 10 mg of dexamethasone as well as a liter of fluid and intravenous Rocephin. On examination she appears to have otitis and she is producing yellow phlegm with her cough. This appears to be a secondary infection. Departure - Departure Disposition: 01 Home, Self Care Clinical Impression: COVID Otitis media Qualifiers: Otitis media type: suppurative Chronicity: acute Laterality: bilateral Recurrence: non-recurrent Spontaneous tympanic membrane rupture: without spontaneous rupture Qualified Code(s): H66.003 - Acute suppurative otitis media without spontaneous rupture of ear drum, bilateral Condition: Stable Instructions: ED Otitis Media Acute Adult, Flu and Cold: Nutrition, Prevention and Treatment Tips Follow-Up: MERNA BOTELLO MD [Primary Care Provider] - Prescriptions: Nirmatrelvir/Ritonavir [Paxlovid] 1 kit PO BID #1 kit Azithromycin [Zithromax] 250 mg PO DAILY #6 tablet Comments: Haydee today we are providing you with some additional cortisone in the form of dexamethasone and we are providing you with a prescription for some Paxlovid for treatment of COVID-19. We did find on examination today that you have infection in both of your middle ears and this is generally considered a secondary infection. Because you are allergic to penicillins we will start you on some azithromycin. Both of these medications have been prescribed to the [facility] in [place].
[2022-10-23 09:25] VITALS: O2SAT 97
[2022-10-23] MEDS ORDERED: cefTRIAXone 1 GM in SODIUM CHLORIDE 0.9% MINIBAG 100 ML IV STA (09:28)
[2022-10-23] MEDS ORDERED: SODIUM CHLORIDE 0.9% 1,000 ML IV STA (09:28)
[2022-10-23] MEDS ORDERED: DEXAMETHASONE 10 MG/ML VIAL IVP STA (09:28)
[2022-10-23 10:00] LABS: BASOPHILS % (AUTO) 0.4 %; EOSINOPHILS # (AUTO) 0.1 10^3/uL (0.0-0.7); EOSINOPHILS % (AUTO) 0.7 %; HCT - HEMATOCRIT 40.6 % (37.0-47.0); HGB - HEMOGLOBIN 12.8 g/dL (12.0-16.0); LYMPHOCYTES # (AUTO) 0.4 10^3/uL (1.5-3.5); LYMPHOCYTES % (AUTO) 5.9 %; MEAN CORPUSCULAR HEMOGLOBIN 27.5 pg (27.0-31.0); MEAN CORPUSCULAR HGB CONC 31.5 g/dL (32.0-36.0); MEAN CORPUSCULAR VOLUME 87.3 fL (81.0-99.0); MEAN PLATELET VOLUME 10.1 fL (7.9-10.8); MONOCYTES # (AUTO) 0.8 10^3/uL (0.0-1.0); MONOCYTES % (AUTO) 11.5 %; NEUTROPHILS # (AUTO) 5.9 10^3/uL (1.5-6.6); NEUTROPHILS % (AUTO) 80.5 %; PLT - PLATELET COUNT 154 10^3/uL (130-450); RED BLOOD COUNT 4.65 10^6/uL (4.20-5.40); RED CELL DISTRIBUTION WIDTH 13.6 % (12.0-15.0); WHITE BLOOD COUNT 7.3 x10^3/uL (4.8-10.8)
--- NOTE | 2022-10-23 10:12 | XRAY Report ---
PROCEDURE: Chest 1 View X-Ray INDICATIONS: dyspnea TECHNIQUE: One view of the chest was acquired. COMPARISON: None. FINDINGS: Surgical changes and devices: None. Lungs and pleura: No pleural effusions or pneumothorax. Lungs are clear. Mediastinum: Mediastinal contours appear normal. Mild cardiomegaly. Bones and chest wall: No suspicious bony lesions. Overlying soft tissues appear unremarkable. IMPRESSION: Mild cardiomegaly. Reviewed by: Rodo Sheikh MD on 10/23/2022 10:10 AM PDT Approved by: Rodo Sheikh MD on 10/23/2022 10:10 AM PDT Station ID: [id number]
[2022-10-23 10:22] LABS: ALBUMIN 3.9 g/dL (3.2-5.5); ALBUMIN/GLOBULIN RATIO 1.6 (1.0-2.2); BILIRUBIN,TOTAL 0.6 mg/dL (0.2-1.0); CALCIUM 9.1 mg/dL (8.5-10.3); CREATININE 0.6 mg/dL (0.6-1.3); POTASSIUM 3.8 mmol/L (3.5-4.5); TOTAL PROTEIN 6.3 g/dL (6.4-8.9)
[2022-10-23 12:13] VITALS: BP 113/66
== END 2022-10-23 12:48 | disposition home or self-care (01) ==
LOC: EDUNIT# → ED 08:57
DX: U07.1 COVID-19 (principal); H66.003 Acute suppurative otitis media without spontaneous rupture of ear drum, bilateral; E03.9 Hypothyroidism, unspecified; Z79.899 Other long term (current) drug therapy
CPT/HCPCS: 36415; 80053; 83690; 85025; 96365; 96375; 99284

== ENCOUNTER 2023-01-27 10:05 | Outpatient (CLI) | payer OTHER ==
--- NOTE | 2023-01-27 23:05 | SLEEP CARE CONSULTATION ---
Information from patient questionnaire entered by Wen Reddy. I have reviewed and concur with the information entered by Wen Reddy. This document represents the service I personally performed and the decisions made by me, Saniya Fuentes MD, [facility]. History of Present Illness Service Date and Time: 01/27/2023 1005 Reason for Visit: New patient Chief Complaint: reports: Insomnia, Frequent awakenings at night Date of Onset: 10+YRS Usual bedtime: 9PM Time it takes to fall asleep: 5-10MIN Snores at night: Yes Observed to quit breathing while asleep: No Sleeps alone due to snoring: No Number of times waking at night: 3-4 Reasons for waking at night: reports: Gasping for air, Pain, Bathroom, Other (NOISE, DREAMS, MOVEMENT) Toss, Turn, or Twitch while sleeping: Yes Recalls having dreams: Yes Usually gets out of bed at: 530AM Feels refreshed in the morning: Yes Morning headache: No Sleepy or fatigued during the day: Yes Ever fallen asleep while driving: Yes Takes day naps: Yes Dreams during day naps: Yes Prior sleep studies: No Additional HPI information: I have the pleasure of seeing Ms. Cr today regarding the possibility of her having a sleep disorder. As you know, she is a 42-year-old lady who complains of not sleeping well for the past 10 years. The patient tells me that she normally goes to bed around 9 pm, and it takes her approximately 5 - 10 minutes to fall asleep. She has not been told that she snores loudly or irregularly at night. She has never been observed to stop breathing in her sleep. Her sleeps in the same bed and snores loudly. She can recall waking up on the average of 3 - 4 times during the night. Most of the time she wakes up because of having to use the bathroom and pain. She has awakened occasionally because of having to gasp for air. There is a lot of tossing and turning in her sleep. She reports somniloquy (sleep talking) and somnambulism (sleep walking). Generally, she can recall having dreams. In the morning she usually gets up out of the bed around 5:30 a.m. not feeling refreshed nor rested. She usually does not have a morning headache. During the day she complains of feeling sleepy and fatigued. Her score on [place] Sleepiness Scale is 12 out of 24. She has fallen asleep while driving and has gone out of the jarad. She usually does not take naps during the day. She reports symptoms of restless leg syndrome. She reports having impaired concentration during the day. - Parasomnia Symptoms Ever been unable to move upon waking from sleep: No Walks in sleep: Yes Talks in sleep: Yes Ever acted out dreams in sleep: Yes Ever felt weak in the knees when startled or emotional: No Bothered by creepy, crawly, restless sensations in legs: Yes Problems with memory or concentration: Yes Subjective Initial [place] Sleepiness Scale score: 15 (01/27/23) Past Medical History Past Medical History: reports: Hypothyroidism, Anxiety, Asthma, Depression, GERD Social History The patient's occupation is a [employer]. Patient is and lives in [place]. Have you smoked in the past 12 months: No Alcohol use: No Family History Family history of sleep disordered breathing: Yes Family Hx Sleep Apnea: Father: Sleep apnea - Treated, Sibling: Sleep apnea - Treated, Grandparent: Sleep apnea - Treated Allergies and Home Medications Known drug allergies: Yes (PCN, PEPCID) Drug allergies reviewed: Yes Home medication list reviewed: Yes Allergy and home medication list: Allergies Penicillins Allergy (Verified 01/22/23 11:21) family hx shellfish derived Allergy (Verified 01/22/23 11:21) Anaphylaxis Review of Systems Weight gain over past 5 years: 100 Weight loss over past 5 years: 100 Cardiovascular: reports: other (SINUS TACHYCARDIA) Respiratory: reports: shortness of breath, wheeze, sputum production Gastrointestinal: reports: heartburn, nausea, diarrhea Neurological: reports: headaches, disorientation Psychiatric: reports: anxiety, depression Ear/Nose/Throat: reports: nasal congestion, wisdom teeth removed Endocrine: reports: thyroid disease, history of goiter, sluggishness, too hot or cold Musculoskeletal: reports: joint pain, neck pain, back pain Immunologic: reports: sneezing, itching, allergies to food or environment Physical Exam Vital signs obtained and entered by: WEN Sands MA Blood Pressure: 116/74 (LEFT ARM) Cuff size: regular Heart Rate: 83 O2 Saturation: 99 Height: 5 ft 4.5 in Weight: 230 lb 12.8 oz Body Mass Index: 38.9 BMI Classification: Obese Neck circumference: 17 Mood/affect: Normal HEENT: No craniofacial malformation Nostrils: patent to airflow Turbinates: normal Septum: midline Mouth and throat: narrow oropharynx Soft palate: long Hard palate: normal Uvula: normal Uvula visualization: 50% Mallampati Class II Tongue: normal in size Tonsils: small Chin and jaw: normal size and position Neck: normal w/o lymphadenopathy or thyromegaly Heart: regular rate and rhythm Lungs: clear bilaterally Extremities: no edema or clubbing Neurologic: intact Impression and Plan IMPRESSION: 1. Obstructive Sleep Apnea-Hypopnea Syndrome, as evident by history of frequent awakenings during the night, unrefreshed sleep, cognitive impairment, and daytime hypersomnolence. Narrow oropharynx and obesity are common predisposing factors for obstructive sleep apnea-hypopnea syndrome. I recommend proceeding to polysomnography to confirm the diagnosis and to assess severity. If she has significant sleep disordered breathing, a manual CPAP titration study will also be performed to find the optimal treatment pressure. I informed the patient of what the sleep studies involve and after some discussion, she agreed to proceed. Plan: 1. Schedule polysomnography and return in 1 to 2 weeks after the study to discuss result and initiate therapy. 2. Avoid long distance driving or when feeling sleepy. 3. Avoid alcohol, sedatives, and muscle relaxants around bedtime. 4. Attempt to lose weight. Counseling Topics: Weight control Follow up with Sleep Care in: 1-2 months Visit Type: In Office Time Spent with Patient (minutes): 15 Provider Statement: I spent 100% of the Face to Face Visit with the patient with greater than 50% spent counseling the patient and coordination of care.
[2023-01-27 23:10] VITALS: BP 116/74; O2SAT 99
== END 2023-01-27 10:06 | disposition home or self-care (01) ==
LOC: SC 10:05
PROVIDERS: ATTEND Internal Medicine Pulmonary Disease
DX: G47.8 Other sleep disorders (principal); R41.89 Other symptoms and signs involving cognitive functions and awareness; G47.10 Hypersomnia, unspecified; E66.9 Obesity, unspecified; Z68.38 Body mass index [BMI] 38.0-38.9, adult
CPT/HCPCS: 99202; 99212

== ENCOUNTER 2023-01-28 20:26 | Outpatient (CLI) | payer OTHER | END 2023-01-28 20:27 | disposition home or self-care (01) | LOC: SC 20:26 | PROVIDERS: ATTEND Internal Medicine Pulmonary Disease | DX: G47.8 Other sleep disorders (principal); R44.8 Other symptoms and signs involving general sensations and perceptions; G47.10 Hypersomnia, unspecified; R53.83 Other fatigue; G47.00 Insomnia, unspecified; E66.9 Obesity, unspecified; R41.89 Other symptoms and signs involving cognitive functions and awareness; G47.50 Parasomnia, unspecified; F51.3 Sleepwalking [somnambulism] | CPT/HCPCS: 95810 ==

== ENCOUNTER 2023-02-10 12:11 | Outpatient (CLI) | payer OTHER ==
--- NOTE | 2023-02-10 11:52 | SLEEP CARE CONSULTATION ---
Information from patient questionnaire entered by Ulices Reddy. I have reviewed and concur with the information entered by Ulices Reddy. This document represents the service I personally performed and the decisions made by me, Saniya Fuentes MD, [facility]. History of Present Illness Service Date and Time: 02/10/2023 1140 Current [place] Sleepiness Scale score: 15 (02/10/23) Additional HPI information: Ms. Cr was seen via video telemedicine ([employer]) for follow up of the sleep study she had on 01/28/2023. The polysomnography showed that the patient had normal sleep efficiency. The sleep architecture was abnormal for mild sleep fragmentation and reduced amount of time spent in REM sleep. Respiratory monitoring showed no significant sleep disordered breathing (AHI = 1.4) or hypoxia (clint oxygen saturation of 87% and only 0.1% to the total sleep time was spent with oxygen saturation below 90%). The patient slept mostly supine (supine AHI = 2.1; non-supine = 0.00). Snore was moderate in intensity. There was no significant periodic leg movement of sleep. Cardiac rhythm was normal sinus rhythm without significant arrhythmia. No abnormal behavior (parasomnia) observed during the night. Sleep Study - Results Type of Sleep Study: Polysomnography (COMPLETED 01/28/23) Allergies and Home Medications Drug allergies reviewed: Yes Home medication list reviewed: Yes Allergy and home medication list: Allergies Penicillins Allergy (Verified 01/22/23 11:21) family hx shellfish derived Allergy (Verified 01/22/23 11:21) Anaphylaxis Review of Systems Review of systems same as previous: Yes (NO CHANGE) Physical Exam Vital signs obtained and entered by: ULICES Sands MA Blood Pressure: 110/68 (PER PT) Height: 5 ft 4 in (PER PT) Weight: 230 lb (PER PT) Body Mass Index: 39.4 BMI Classification: Obese Impression and Plan IMPRESSION: 1. Primary Snore (ICD-10 R06.83), moderate, but no significant sleep disordered breathing. Her snoring is not bothersome to her . No t reatment is necessary. PLAN: 1. Avoid weight gain. 2. Return for follow up on as needed basis. Follow up with Sleep Care in: as needed Visit Type: Telehealth Video Video Type: [employer] Patient Location: Home Location of Provider: Office Patient agrees and consents to this telehealth visit type: Yes Patient agrees to have their insurance billed: Yes Time Spent with Patient (minutes): 10 Provider Statement: I spent 100% of the Telehealth Video Call with the patient with greater than 50% spent counseling the patient and coordination of care.
[2023-02-10 12:00] VITALS: BP 110/68
== END 2023-02-10 12:12 | disposition home or self-care (01) ==
LOC: SC 12:11
PROVIDERS: ATTEND Internal Medicine Pulmonary Disease
DX: R06.83 Snoring (principal); E66.9 Obesity, unspecified; Z68.39 Body mass index [BMI] 39.0-39.9, adult

== ENCOUNTER 2023-06-13 13:27 | Emergency (ER) | payer OTHER ==
--- NOTE | 2023-06-13 13:55 | ED Physician Documentation ---
PD HPI HEADACHE - Stated complaint Stated Complaint: LIGHT HEADED/HEAD PX - Chief complaint Chief Complaint: General - History obtained from History obtained from: Patient - History of Present Illness Timing - onset: Yesterday Timing - onset during: Exertion (she was lifting 10 bags of contrete mix (60 lb each) out of truck. [place] DAO and off balance. Was improved moderately but then mowed the lasn too and DAO worse. Has had few days of general malaise and aches though. Consider viral URI with now trigger migraine/functional DAO. 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 - Present Medications Home Medications: Ambulatory Orders Medication Instructions Recorded Confirmed Albuterol Sulf [Ventolin Hfa See Rx Instructions .ROUTE .COMPLEX 01/27/23 02/10/23 Inhaler] Calcium Carbonate [Calcium] See Rx Instructions .ROUTE .COMPLEX 01/27/23 02/10/23 Cetirizine [ZyrTEC] See Rx Instructions .ROUTE .COMPLEX 01/27/23 02/10/23 Cholecalciferol (Vitamin D3) See Rx Instructions .ROUTE .COMPLEX 01/27/23 02/10/23 [Vitamin D3] EPINEPHrine [Epipen Jr] See Rx Instructions .ROUTE .COMPLEX 01/27/23 02/10/23 Fluticasone [Flonase] See Rx Instructions .ROUTE .COMPLEX 01/27/23 02/10/23 Fluticasone [Flonase] See Rx Instructions .ROUTE .COMPLEX 01/27/23 02/10/23 Hydrocortisone See Rx Instructions .ROUTE .COMPLEX 01/27/23 02/10/23 Hydrocortisone 1% Cream See Rx Instructions .ROUTE .COMPLEX 01/27/23 02/10/23 [Hydrocortisone] Ipratropium [Atrovent] See Rx Instructions .ROUTE .COMPLEX 01/27/23 02/10/23 Levothyroxine Sodium [Synthroid] See Rx Instructions .ROUTE .COMPLEX 01/27/23 02/10/23 Metoprolol Succinate [Toprol Xl] See Rx Instructions .ROUTE .COMPLEX 01/27/23 02/10/23 Montelukast [Singulair] See Rx Instructions .ROUTE .COMPLEX 01/27/23 02/10/23 Sertraline [Zoloft] See Rx Instructions .ROUTE .COMPLEX 01/27/23 02/10/23 Topiramate [Topiramate ER] See Rx Instructions .ROUTE .COMPLEX 01/27/23 02/10/23 HYDROcod/ACETAM 5/325 [[place] 5/325] 1 ea PO Q6H PRN #12 tablet 06/13/23 Ondansetron Odt [Zofran] 4 mg TL Q6H PRN #10 tablet 06/13/23 Rizatriptan Benzoate [Rizatriptan] 5 mg PO Q6H PRN #5 tablet 06/13/23 - Allergies Allergies/Adverse Reactions: Allergies Allergy/AdvReac Type Severity Reaction Status Date / Time Penicillins Allergy family hx Verified 06/13/23 13:54 shellfish derived Allergy Anaphylaxis Verified 06/13/23 13:54 - Social History Does the pt smoke?: No Smoking Status: Never smoker Does the pt drink ETOH?: Yes Does the pt have substance abuse?: No - Immunizations Immunizations are current?: Yes Immunizations: TDAP current <10years - POLST Patient has POLST: No PD ED PE NORMAL - Vitals Vital signs reviewed: Yes - General General: Alert and oriented X 3, No acute distress (appears inpain due to headache but still conversant and interacts well. ), Well developed/nourished - HEENT HEENT: Atraumatic, PERRL, EOMI (some light sensitivity. Feels less pressure in head when I turn off overhead light for that area. 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, No motor deficit, No sensory deficit, Normal speech, Other Results - Vitals Vitals: Vital Signs - 24 hr 06/13/23 06/13/23 06/13/23 13:45 13:54 15:58 Temperature 98.6 C H 37 C Heart Rate 86 67 Respiratory 20 21 Rate Blood Pressure 118/80 120/73 O2 Saturation 100 06/13/23 16:02 Temperature 37 C Heart Rate 67 Respiratory 21 Rate Blood Pressure 120/73 O2 Saturation 100 Oxygen O2 Source Room air - Labs Labs: Laboratory Tests 06/13/23 06/13/23 06/13/23 14:38 14:38 15:13 WBC 9.7 RBC 5.13 Hgb 14.0 Hct 44.9 MCV 87.5 MCH 27.3 MCHC 31.2 L RDW 13.1 Plt Count 241 MPV 9.9 Neut # (Auto) 7.7 H Lymph # (Auto) 1.3 L [place] # (Auto) 0.5 Eos # (Auto) 0.1 Baso # (Auto) 0.1 Absolute Nucleated RBC 0.00 Nucleated RBC % 0.0 Sodium 141 Potassium 3.9 Chloride 110 Carbon Dioxide 25 Anion Gap 6.0 BUN 22 H Creatinine 0.7 Estimated GFR (MDRD) 93 Glucose 90 Calcium 9.8 Magnesium 1.8 Total Bilirubin 0.3 AST 13 ALT 15 Alkaline Phosphatase 79 Total Protein 7.1 Albumin 4.3 Globulin 2.8 Albumin/Globulin Ratio 1.5 Lipase 36 Nasal Adenovirus (PCR) NOT DETECTED Nasal B. parapertussis DNA (PCR) NOT DETECTED Nasal Coronavir 229E PCR NOT DETECTED Nasal Coronavir HKU1 PCR NOT DETECTED Nasal Coronavir NL63 PCR NOT DETECTED Nasal Coronavir OC43 PCR NOT DETECTED Nasal Enterovir/Rhinovir PCR NOT DETECTED Nasal Influenza B PCR NOT DETECTED Nasal Influenza A PCR NOT DETECTED Nasal Parainfluen 1 PCR NOT DETECTED Nasal Parainfluen 2 PCR NOT DETECTED Nasal Parainfluen 3 PCR NOT DETECTED Nasal Parainfluen 4 PCR NOT DETECTED Nasal RSV (PCR) NOT DETECTED Nasal B.pertussis DNA PCR NOT DETECTED Nasal C.pneumoniae (PCR) NOT DETECTED Moshe Human Metapneumo PCR NOT DETECTED Nasal M.pneumoniae (PCR) NOT DETECTED Nasal SARS-CoV-2 (PCR) NOT DETECTED - Rads (name of study) head CT Relevant Findings:: Prelim report reviewed (no ICH nor acute focal finding. ), EMP independent interpretation of test (no acute abnormal appearance. ) PD Medical Decision Making - ED course Complexity details: reviewed results (head CT whtiout acute process. Literature on this states can eliminate ICH with CT if within certain timeperiod. This is a bit extended but I feel is reliable in setting of lower pre-test risk. ), re- evaluated patient (DAO essentially resolved with IV fluids, toradol, and Compazine, featured as migraine type combination. ), considered differential (she was lifting 10 bags of contrete mix (60 lb each) out of truck. [place] DAO and off balance. Was improved moderately but then mowed the lasn too and DAO worse. Has had few days of general malaise and aches though. Consider viral URI with now trigger migraine/functional DAO. Does not appear meningitic. ), d/w patient ED course: Onset of abrupt headache while lifting heavy bags of cement (60 pounds x 10). Does have history of migraines. She states it feels somewhat similar but the onset was faster. Character is still somewhat the same with some nausea and light sensitive. She does have history of migraines and takes topiramate as a preventative. She only uses naproxen when she does get headaches. Her neurologist had discussed triptans with her but has not prescribed any previously. She gets them infrequently. 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 She had a previous thyroidectomy so is on thyroid supplement. She takes hydrocortisone daily. She says she have a general malaise and aches last couple of days but no fevers coughing or runny nose. Mild sore throat. We can do a viral panel test to see if she has a viral illness which could suggest the need for stress dosing of her steroid for 7 to 10 days. Otherwise she may have gotten lightheaded and weak feeling just from the overexertion. She was given some IV fluids along with migraine targeted medication of Toradol, Compazine here in the ER and is starting to have improvement in her headache. Due to the abrupt onset of it, we did do a CT scan that did not show any acute abnormalities. Basic lab tests including chemistry panel, magnesium, blood count showed normal values without other reasons for weak or lightheaded. At this point we will presume her to discharge shortly after recheck to ensure her headache is still improving. We discussed the use of triptans and antiemetic for subsequent migraines and she is amendable to a prescription for that. Her next neurology appointment is in about a month. They were given opportunity to try some of these. At this point the respiratory panel test is not back yet but we can call with the results. Main effect on her treatment would be increasing steroids for a longer duration if so. Departure - Departure Disposition: 01 Home, Self Care Clinical Impression: Headache, acute, Generalized weakness, Lightheadedness, Secondary adrenal insufficiency, Overexertion from lifting Condition: Stable Record reviewed to determine appropriate education?: Yes Instructions: ED Headache Migraine Follow-Up: FAY OCONNELL MD [Primary Care Provider] - Prescriptions: HYDROcod/ACETAM 5/325 [[place] 5/325] 1 ea PO Q6H PRN #12 tablet PRN Reason: Pain Rizatriptan Benzoate [Rizatriptan] 5 mg PO Q6H PRN #5 tablet PRN Reason: Migraine Ondansetron Odt [Zofran] 4 mg TL Q6H PRN #10 tablet PRN Reason: Nausea / Vomiting Comments: Your basic blood tests of a blood count and chemistry panel are normal without any electrolyte or blood sugar problems or anemia. Your head CT did not show any obvious signs of acute bleeding nor other acute abnormality. It does sound likely to be a migraine type headache and also consider some muscle strain in the neck related to the lifting. Your headache seems to be improving with medications targeted towards migraine or functional headache. Continue usual medications. For subsequent migraine type headaches, you could try combination of not only the naproxen that you would use but also ondansetron/Zofran for nausea and try one of the migraine targeted medications. I prescribed some rizatriptan. It can be taken when needed for migraine with a repeat dose in the same day if needed. For for headache unresolved with those, I did prescribe a few stronger pain medicines to take just if needed. Follow-up with your neurologist next month as planned. Stay well-hydrated. We did do a respiratory viral panel to see if you have any evidence of developing a viral illness. We can call you with the result a little bit later when it comes resulted. If there is a viral type illness associated with your symptoms, then you do want to do a stress dosing or double dosing of your hydrocortisone for 7 to 10 days. If it is negative for now then which is presumed that the added dose of steroid we gave you here would be sufficient. Forms: PCP List Discharge Date/Time: 06/13/23 16:06
[2023-06-13 14:01] VITALS: O2SAT 100
[2023-06-13 14:45] LABS: BASOPHILS # (AUTO) 0.1 10^3/uL (0.0-0.1); BASOPHILS % (AUTO) 0.5 %; EOSINOPHILS # (AUTO) 0.1 10^3/uL (0.0-0.7); EOSINOPHILS % (AUTO) 0.8 %; HCT - HEMATOCRIT 44.9 % (37.0-47.0); LYMPHOCYTES # (AUTO) 1.3 10^3/uL (1.5-3.5); LYMPHOCYTES % (AUTO) 13.1 %; MEAN CORPUSCULAR HEMOGLOBIN 27.3 pg (27.0-31.0); MEAN CORPUSCULAR HGB CONC 31.2 g/dL (32.0-36.0); MEAN CORPUSCULAR VOLUME 87.5 fL (81.0-99.0); MEAN PLATELET VOLUME 9.9 fL (7.9-10.8); MONOCYTES # (AUTO) 0.5 10^3/uL (0.0-1.0); MONOCYTES % (AUTO) 4.9 %; NEUTROPHILS # (AUTO) 7.7 10^3/uL (1.5-6.6); NEUTROPHILS % (AUTO) 80.1 %; PLT - PLATELET COUNT 241 10^3/uL (130-450); RED BLOOD COUNT 5.13 10^6/uL (4.20-5.40); RED CELL DISTRIBUTION WIDTH 13.1 % (12.0-15.0); WHITE BLOOD COUNT 9.7 x10^3/uL (4.8-10.8)
[2023-06-13] MEDS: SODIUM CHLORIDE 0.9% 1,000 ML IV STA (14:55)
[2023-06-13] MEDS: KETOROLAC 15 MG/ML VIAL IVP STA (15:00)
[2023-06-13] MEDS: DEXAMETHASONE 10 MG/ML VIAL IVP STA (15:01)
[2023-06-13] MEDS: PROCHLORPERAZINE 10 MG/2 ML VIAL IVP STA (15:03)
[2023-06-13 15:04] LABS: ALBUMIN 4.3 g/dL (3.2-5.5); ALBUMIN/GLOBULIN RATIO 1.5 (1.0-2.2); BILIRUBIN,TOTAL 0.3 mg/dL (0.2-1.0); CALCIUM 9.8 mg/dL (8.5-10.3); CREATININE 0.7 mg/dL (0.6-1.3); MAGNESIUM 1.8 mg/dL (1.7-2.3); POTASSIUM 3.9 mmol/L (3.5-4.5); TOTAL PROTEIN 7.1 g/dL (6.4-8.9)
--- NOTE | 2023-06-13 15:12 | CT Report ---
PROCEDURE: Head WO INDICATIONS: abrupt headache yesterday while lifting heavy TECHNIQUE: Noncontrast 4.5 mm thick angled axial sections acquired from the foramen magnum to the vertex. For r adiation dose reduction, the following was used: automated exposure control, adjustment of mA and/or kV according to patient size. COMPARISON: None. FINDINGS: Image quality: Excellent. CSF spaces: Basal cisterns are patent. No extra-axial fluid collections. Ventricles are normal in size and shape. Brain: No midline shift. No intracranial masses or hemorrhage. Hong-white matter interface is norm al. Skull and face: Calvarium and visualized facial bones are intact, without suspicious lesions. Sinuses: Visualized sinuses and mastoids are clear. IMPRESSION: No acute intracranial pathology. Reviewed by: Rodo Sheikh MD on 06/13/2023 3:10 PM PDT Approved by: Rodo Sheikh MD on 06/13/2023 3:10 PM PDT Station ID: [id number]
[2023-06-13 16:04] VITALS: BP 120/73
[2023-06-13 16:17] LABS: B. PARAPERTUSSIS- RESP PCR PAN NOT DETECTED; B. PERTUSSIS- RESP PCR PANEL NOT DETECTED; C. PNEUMONIAE- RESP PCR PANEL NOT DETECTED; CORONAVIRUS 229E-RESP PCR NOT DETECTED; CORONAVIRUS HKU1-RESP PCR NOT DETECTED; CORONAVIRUS NL63-RESP PCR NOT DETECTED; CORONAVIRUS OC43-RESP PCR NOT DETECTED; HUMAN METAPNEUMOVIRUS NOT DETECTED; INFLUENZA A- RESP PCR PANEL NOT DETECTED; INFLUENZA B - RESP PCR PANEL NOT DETECTED; M. PNEUMONIAE- RESP PCR PANEL NOT DETECTED; PARAINFLUENZA VIRUS 1 NOT DETECTED; PARAINFLUENZA VIRUS 2 NOT DETECTED; PARAINFLUENZA VIRUS 3 NOT DETECTED; PARAINFLUENZA VIRUS 4 NOT DETECTED; RHINOVIRUS/ENTEROVIRUS NOT DETECTED; RSV- RESP PCR PANEL NOT DETECTED; SARS-CoV-2 -RESP PCR PANEL NOT DETECTED
== END 2023-06-13 16:06 | disposition home or self-care (01) ==
LOC: ED 13:27
DX: R51.9 Headache, unspecified (principal); R53.1 Weakness; R42 Dizziness and giddiness; X50.0XXA Overexertion from strenuous movement or load, initial encounter; E27.49 Other adrenocortical insufficiency; Z11.52 Encounter for screening for COVID-19
CPT/HCPCS: 36415; 80053; 83690; 83735; 85025; 87633; 96374; 96375; 99284